=== PATIENT | male | born 1970 | race Caucasian/White ===

== ENCOUNTER 2023-04-20 17:41 | Emergency (ER) | payer OTHER | END 2023-04-20 18:28 | disposition home or self-care (01) | LOC: ERS 17:41 | DX: L76.32 Postprocedural hematoma of skin and subcutaneous tissue following other procedure (principal); L03.116 Cellulitis of left lower limb; I50.9 Heart failure, unspecified; E11.9 Type 2 diabetes mellitus without complications | CPT/HCPCS: 99283 ==

== ENCOUNTER 2023-05-12 16:20 | Emergency (ER) | payer OTHER ==
[2023-05-12 17:29] LABS: #Eosinphils 0.2 thou/uL (0.0-0.7); #Monocytes 0.7 thou/uL (0.11-0.59); %Basophils 0.6 % (0.0-1.0); %Eosinophils 2.9 % (0.0-10.0); %Lymphocytes 25.4 % (21.0-51.0); %Monocytes 13.3 % (0.0-10.0); %Neutrophils 57.6 % (42.0-75.0); Hematocrit 36.3 % (42.0-52.0); Hemoglobin 12.4 g/dL (14.0-18.0); Mean Corpuscular HGB CONC 34.2 g/dL (32.0-36.0); Mean Corpuscular Hemoglobin 33.9 pg (27.0-31.0); Mean Corpuscular Volume 99.2 fl (78.0-98.0); Platelet Count 109 10x3/uL (130-400); RBC Distribution Width 12.7 % (11.5-14.5); Red Blood Cell (RBC) Count 3.66 mill/uL (4.70-6.10); White Blood Cell (WBC) Count 5.2 10x3/uL (4.8-10.8)
[2023-05-12 17:55] LABS: ALT (SGPT) 33 U/L (8-55); AST (SGOT) 37 U/L (5-34); Albumin 3.5 g/dL (3.5-5.0); Alkaline Phosphatase 135 U/L (40-110); Anion Gap 15 mmol/L (10-20); BUN (Urea Nitrogen) 36 mg/dL (8.4-25.7); Bilirubin, Total 0.8 mg/dL (0.2-1.2); Calc. Creatinine Clearance 0 mL/min (70-130); Calcium 8.8 mg/dL (7.8-10.44); Carbon Dioxide 28 mmol/L (22-29); Chloride 98 mmol/L (98-107); Estimated GFR 11; Globulin 3.9 g/dL (2.4-3.5); Glucose 182 mg/dL (70-105); Protein, Total 7.4 g/dL (6.0-8.3); Sodium 137 mmol/L (136-145)
== END 2023-05-12 21:10 | disposition home or self-care (01) ==
LOC: ERS 16:20
DX: S81.802D Unspecified open wound, left lower leg, subsequent encounter (principal); I13.2 Hypertensive heart and chronic kidney disease with heart failure and with stage 5 chronic kidney disease, or end stage renal disease; I50.9 Heart failure, unspecified; N18.6 End stage renal disease; E11.22 Type 2 diabetes mellitus with diabetic chronic kidney disease; F17.210 Nicotine dependence, cigarettes, uncomplicated; W18.30XD Fall on same level, unspecified, subsequent encounter
CPT/HCPCS: 36415; 80053; 83605; 85025

== ENCOUNTER 2023-05-20 15:59 | Inpatient (IN) | payer OTHER, MEDICAID ==
[2023-05-20 18:21] LABS: #Eosinphils 0.1 thou/uL (0.0-0.7); #Monocytes 0.8 thou/uL (0.11-0.59); #Neutrophils 3.2 thou/uL (1.40-6.50); %Basophils 0.4 % (0.0-1.0); %Eosinophils 2.2 % (0.0-10.0); %Lymphocytes 23.9 % (21.0-51.0); %Monocytes 14.1 % (0.0-10.0); %Neutrophils 59.2 % (42.0-75.0); Hematocrit 36.3 % (42.0-52.0); Hemoglobin 12.7 g/dL (14.0-18.0); Mean Corpuscular Hemoglobin 33.7 pg (27.0-31.0); Mean Corpuscular Volume 96.3 fl (78.0-98.0); Mean Platelet Volume 11.8 fL (7.4-10.4); RBC Distribution Width 12.5 % (11.5-14.5); Red Blood Cell (RBC) Count 3.77 mill/uL (4.70-6.10); White Blood Cell (WBC) Count 5.4 10x3/uL (4.8-10.8)
[2023-05-20 18:26] LABS: Platelet Count 127 10x3/uL (130-400)
[2023-05-20 18:54] LABS: ALT (SGPT) 35 U/L (8-55); AST (SGOT) 39 U/L (5-34); Albumin 3.7 g/dL (3.5-5.0); Alkaline Phosphatase 165 U/L (40-110); Anion Gap 12 mmol/L (10-20); BUN (Urea Nitrogen) 26 mg/dL (8.4-25.7); Calc. Creatinine Clearance 0 mL/min (70-130); Calcium 9.1 mg/dL (7.8-10.44); Carbon Dioxide 32 mmol/L (22-29); Chloride 95 mmol/L (98-107); Estimated GFR 15; Globulin 4.2 g/dL (2.4-3.5); Glucose 178 mg/dL (70-105); Potassium 3.5 mmol/L (3.5-5.1); Protein, Total 7.9 g/dL (6.0-8.3); Sodium 135 mmol/L (136-145)
[2023-05-20] MEDS ORDERED: hydrALAZINE 20 MG/ML VIAL ONE (19:21)
[2023-05-20] MEDS ORDERED: Acetaminophen 325 MG TAB PO PRN (20:15)
[2023-05-20] MEDS ORDERED: Ondansetron PF 4 MG/2 ML Vial IVP PRN (20:15)
[2023-05-20] MEDS ORDERED: Ondansetron ODT 4 MG TAB SL PRN (20:15)
[2023-05-20] MEDS ORDERED: HYDROcodone/Acetaminophen 5/325 mg Tablet PO PRN (20:49)
[2023-05-20] MEDS ORDERED: Senokot S 8.6-50 MG TAB PO PRN (20:49)
[2023-05-20] MEDS ORDERED: Calcium Carbonate 500 MG ChewTAB PO PRN (20:49)
[2023-05-20] MEDS ORDERED: Glucagon 1 MG/ML KIT IM PRN (20:52)
[2023-05-20] MEDS ORDERED: Dextrose 50% Abboject 50 ML SYRINGE SLOW IVP PRN (20:52)
[2023-05-20] MEDS ORDERED: HumaLOG 300 UNITS/3 ML VIAL SC PRN ×2 (20:52)
[2023-05-20] MEDS ORDERED: Dextrose 5% in Water 1,000 ML IV PRN (20:52)
[2023-05-20] MEDS ORDERED: niCARdipine 25 MG in Sodium Chloride 0.9% 250 ML 250 ML IVPB SCH (21:00)
[2023-05-20] MEDS ORDERED: niCARdipine 25 MG/10 ML SDV ONE (21:02)
[2023-05-20] MEDS ORDERED: Morphine 4 MG/ML VIAL ONE (21:03)
[2023-05-20] MEDS ORDERED: Ondansetron PF 4 MG/2 ML Vial ONE (21:04)
[2023-05-20] MEDS ORDERED: Vancomycin 1 GM/200 ML (FROZEN) BAG ONE (21:04)
[2023-05-20] MEDS ORDERED: Vancomycin (BATCH) 2 GM in Premix 1 BAG IVPB SCH (21:15)
[2023-05-20 21:43] LABS: Glucose 99 mg/dL (70-105); Hemoglobin A1c 6.6 % (4.0-6.0)
[2023-05-20 23:39] VITALS: BMI 12.6
[2023-05-21] MEDS ORDERED: Labetalol HCl 100 MG/20 ML VIAL SLOW IVP PRN (02:13)
[2023-05-21 06:44] LABS: #Eosinphils 0.2 thou/uL (0.0-0.7); #Neutrophils 3.3 thou/uL (1.40-6.50); %Basophils 0.5 % (0.0-1.0); %Eosinophils 2.9 % (0.0-10.0); %Lymphocytes 25.8 % (21.0-51.0); %Monocytes 16.7 % (0.0-10.0); %Neutrophils 53.6 % (42.0-75.0); Hematocrit 33.8 % (42.0-52.0); Hemoglobin 11.6 g/dL (14.0-18.0); Mean Corpuscular HGB CONC 34.3 g/dL (32.0-36.0); Mean Corpuscular Hemoglobin 33.9 pg (27.0-31.0); Mean Corpuscular Volume 98.8 fl (78.0-98.0); Mean Platelet Volume 11.6 fL (7.4-10.4); Platelet Count 118 10x3/uL (130-400); RBC Distribution Width 12.7 % (11.5-14.5); Red Blood Cell (RBC) Count 3.42 mill/uL (4.70-6.10); White Blood Cell (WBC) Count 6.1 10x3/uL (4.8-10.8)
[2023-05-21 07:07] LABS: Anion Gap 12 mmol/L (10-20); BUN (Urea Nitrogen) 34 mg/dL (8.4-25.7); Calc. Creatinine Clearance 10 mL/min (70-130); Calcium 8.4 mg/dL (7.8-10.44); Carbon Dioxide 31 mmol/L (22-29); Chloride 97 mmol/L (98-107); Estimated GFR 13; Glucose 103 mg/dL (70-105); Potassium 3.8 mmol/L (3.5-5.1); Sodium 136 mmol/L (136-145)
[2023-05-21] MEDS: NIFEdipine XL 30 MG ER.TAB PO SCH (08:30)
[2023-05-21] MEDS: Heparin 5,000 UNITS/ML VIAL SC SCH ×3 (08:30→20:50)
[2023-05-21] MEDS: Morphine 2 MG/ML VIAL SLOW IVP PRN ×3 (09:27→20:56)
[2023-05-21] MEDS: Famotidine 20 MG TAB PO SCH (10:51)
[2023-05-22] MEDS: Morphine 2 MG/ML VIAL SLOW IVP PRN (08:21)
[2023-05-22] MEDS ORDERED: Non-Formulary Item 1 EACH (Buprenorphine Hcl [Belbuca] 300 MCG Film) BC PRN (08:39)
[2023-05-22] MEDS ORDERED: HYDROmorphone 2 MG TAB PO PRN (08:39)
[2023-05-22] MEDS ORDERED: NATEGLINIDE 60 MG PO SCH (09:00)
[2023-05-22] MEDS ORDERED: Non-Formulary Item 1 EACH (Linagliptin [Tradjenta] 5 MG Tablet) PO SCH (09:00)
[2023-05-22] MEDS: Heparin 5,000 UNITS/ML VIAL SC SCH ×2 (09:00→15:15)
[2023-05-22] MEDS ORDERED: Clopidogrel Bisulfate 75 MG TAB PO SCH (09:00)
[2023-05-22] MEDS ORDERED: Alogliptin 25 MG TAB PO SCH (09:00)
[2023-05-22] MEDS ORDERED: Buprenorphine Hcl [Belbuca] 300 MCG Film SL PRN (09:05)
[2023-05-22 09:12] LABS: HBSAB Concentration Less than 8.00 mIU/mL; HBSAg Index 0.16 S/CO (0-0.99); Hep B Core Total Ab Non-Reactive (NonReactive); Hep B Core Total Index 0.28 S/CO (0-0.79); Hep B Surf AB Non-Reactive (NonReactive); Hep B Surf Ag Non-Reactive S/CO (NonReactive); Hep C IgG Ab Non-Reactive S/CO (NonReactive); Hep C Index 0.16 S/CO (0-0.79)
[2023-05-22] MEDS: Famotidine 20 MG TAB PO SCH (15:14)
[2023-05-22 15:28] VITALS: BP 155/66; TEMP 98.2
[2023-05-23] MEDS ORDERED: Nateglinide 120 MG TAB PO SCH (09:00)
== END 2023-05-22 15:31 | disposition home or self-care (01) | DRG 304 ==
LOC: ERS 15:59 → CCU 20:05 → T4-A 05-21 12:34
PROVIDERS: ADMIT Student in an Organized Health Care Education/Training Program; ATTEND Internal Medicine
DX: I16.0 Hypertensive urgency (principal); N18.6 End stage renal disease; L97.929 Non-pressure chronic ulcer of unspecified part of left lower leg with unspecified severity; I13.0 Hypertensive heart and chronic kidney disease with heart failure and stage 1 through stage 4 chronic kidney disease, or unspecified chronic kidney disease; E11.22 Type 2 diabetes mellitus with diabetic chronic kidney disease; Z99.2 Dependence on renal dialysis; I73.9 Peripheral vascular disease, unspecified; I50.9 Heart failure, unspecified; I25.10 Atherosclerotic heart disease of native coronary artery without angina pectoris; E11.51 Type 2 diabetes mellitus with diabetic peripheral angiopathy without gangrene; F17.210 Nicotine dependence, cigarettes, uncomplicated; F41.9 Anxiety disorder, unspecified; F32.A Depression, unspecified; D63.1 Anemia in chronic kidney disease; Z79.01 Long term (current) use of anticoagulants; Z79.899 Other long term (current) drug therapy
CPT/HCPCS: 36415; 36416; 80053; 83036; 83605; 85025; 86140; 86704; 93005; 96365; 96366; 96375; 97139; J0360; J1644; J2270; J2272; J2405; J3370; J3370-JW

== ENCOUNTER 2023-08-14 07:20 | Inpatient (IN) | payer OTHER, MEDICAID ==
[2023-08-14 08:13] LABS: #Eosinphils 0.1 thou/uL (0.0-0.7); #Monocytes 0.8 thou/uL (0.11-0.59); #Neutrophils 2.7 thou/uL (1.40-6.50); %Basophils 0.5 % (0.0-1.0); %Eosinophils 2.5 % (0.0-10.0); %Lymphocytes 18.6 % (21.0-51.0); %Monocytes 17.2 % (0.0-10.0); Hematocrit 33.9 % (42.0-52.0); Hemoglobin 11.8 g/dL (14.0-18.0); Mean Corpuscular HGB CONC 34.8 g/dL (32.0-36.0); Mean Corpuscular Hemoglobin 34.3 pg (27.0-31.0); Mean Corpuscular Volume 98.5 fl (78.0-98.0); Mean Platelet Volume 11.9 fL (7.4-10.4); Platelet Count 94 10x3/uL (130-400); RBC Distribution Width 14.5 % (11.5-14.5); Red Blood Cell (RBC) Count 3.44 mill/uL (4.70-6.10); White Blood Cell (WBC) Count 4.4 10x3/uL (4.8-10.8)
[2023-08-14 08:37] LABS: ALT (SGPT) 38 U/L (8-55); AST (SGOT) 37 U/L (5-34); Albumin 3.4 g/dL (3.5-5.0); Alkaline Phosphatase 136 U/L (40-110); Anion Gap 13 mmol/L (10-20); BUN (Urea Nitrogen) 40 mg/dL (8.4-25.7); Calc. Creatinine Clearance 0 mL/min (70-130); Calcium 8.5 mg/dL (7.8-10.44); Carbon Dioxide 31 mmol/L (22-29); Chloride 94 mmol/L (98-107); Estimated GFR 11; Globulin 4.2 g/dL (2.4-3.5); Glucose 222 mg/dL (70-105); Potassium 3.6 mmol/L (3.5-5.1); Protein, Total 7.6 g/dL (6.0-8.3); Sodium 134 mmol/L (136-145)
[2023-08-14 08:46] LABS: CellaVision Operator ID LAB.KW3; Platelet Adequacy Comment Platelets Decreased; Polychromasia SLIGHT = 2-3 cells HPF (0-2)
[2023-08-14] MEDS ORDERED: Acetaminophen 650 MG Suppository PR PRN (10:27)
[2023-08-14] MEDS ORDERED: Acetaminophen 325 MG TAB PO PRN (10:27)
[2023-08-14] MEDS ORDERED: Non-Formulary Item 1 EACH (Buprenorphine Hcl [Belbuca] 300 MCG Film) BC PRN (10:38)
[2023-08-14] MEDS ORDERED: Buprenorphine Hcl [Belbuca] 300 MCG Film SL PRN (10:49)
[2023-08-14 13:51] LABS: Troponin I 0.031 ng/mL (< 0.028)
[2023-08-14] MEDS ORDERED: Heparin 5,000 UNITS/ML VIAL ONE (15:16)
[2023-08-14] MEDS: Heparin 5,000 UNITS/ML VIAL SC SCH (15:19)
[2023-08-14] MEDS: HYDROmorphone 2 MG TAB PO PRN (17:45)
[2023-08-14] MEDS: cloNIDine 0.1 MG TAB PO PRN (20:41)
[2023-08-14 21:08] LABS: Troponin I 0.022 ng/mL (< 0.028)
[2023-08-14 22:43] VITALS: BMI 29.0
[2023-08-14] MEDS ORDERED: cloNIDine 0.1 MG TAB PO PRN (23:42)
[2023-08-15] MEDS: cloNIDine 0.1 MG TAB PO SCH (00:15)
[2023-08-15] MEDS: Morphine 2 MG/ML VIAL SLOW IVP PRN (01:25)
[2023-08-15 04:33] LABS: #Eosinphils 0.3 thou/uL (0.0-0.7); #Neutrophils 2.9 thou/uL (1.40-6.50); %Basophils 0.5 % (0.0-1.0); %Eosinophils 4.5 % (0.0-10.0); %Lymphocytes 25.1 % (21.0-51.0); %Monocytes 18.2 % (0.0-10.0); %Neutrophils 51.5 % (42.0-75.0); Hematocrit 32.6 % (42.0-52.0); Hemoglobin 11.1 g/dL (14.0-18.0); Mean Corpuscular Hemoglobin 33.1 pg (27.0-31.0); Mean Corpuscular Volume 97.3 fl (78.0-98.0); Mean Platelet Volume 12.5 fL (7.4-10.4); RBC Distribution Width 14.4 % (11.5-14.5); Red Blood Cell (RBC) Count 3.35 mill/uL (4.70-6.10); White Blood Cell (WBC) Count 5.5 10x3/uL (4.8-10.8)
[2023-08-15 04:41] LABS: Platelet Count 86 10x3/uL (130-400)
[2023-08-15 04:54] LABS: Anion Gap 12 mmol/L (10-20); BUN (Urea Nitrogen) 49 mg/dL (8.4-25.7); Calc. Creatinine Clearance 16 mL/min (70-130); Calcium 8.3 mg/dL (7.8-10.44); Carbon Dioxide 31 mmol/L (22-29); Chloride 94 mmol/L (98-107); Estimated GFR 9; Glucose 221 mg/dL (70-105); Potassium 3.9 mmol/L (3.5-5.1); Sodium 133 mmol/L (136-145)
[2023-08-15] MEDS: Alogliptin 25 MG TAB PO SCH (08:42)
[2023-08-15] MEDS: Nateglinide 120 MG TAB PO SCH (08:42)
[2023-08-15] MEDS ORDERED: NATEGLINIDE 60 MG PO SCH (09:00)
[2023-08-15] MEDS ORDERED: Non-Formulary Item 1 EACH (Linagliptin [Tradjenta] 5 MG Tablet) PO SCH (09:00)
[2023-08-15] MEDS: NIFEdipine XL 30 MG ER.TAB PO SCH (11:04)
[2023-08-15] MEDS: Clopidogrel Bisulfate 75 MG TAB PO SCH (11:04)
[2023-08-15] MEDS ORDERED: Nitroglycerin 2% Ointment 1 INCH/1 GM Packet TOP PRN (16:41)
[2023-08-15] MEDS: Minoxidil 10 MG TAB PO SCH (17:34)
[2023-08-16 07:56] LABS: HBSAg Index 0.18 S/CO (0-0.99); Hep B Core Total Ab Non-Reactive (NonReactive); Hep B Core Total Index 0.18 S/CO (0-0.79); Hep B Surf Ag Non-Reactive S/CO (NonReactive); Hep C IgG Ab Non-Reactive S/CO (NonReactive); Hep C Index 0.18 S/CO (0-0.79)
[2023-08-16 08:09] LABS: HBSAB Concentration 493.39 mIU/mL; Hep B Surf AB Reactive (NonReactive)
[2023-08-16] MEDS: Alogliptin 6.25 MG TAB PO SCH (13:27)
[2023-08-16] MEDS: Ezetimibe 10 MG TAB PO SCH (13:27)
[2023-08-16] MEDS: Fish Oil 1,000 MG CAP PO SCH (13:27)
[2023-08-16] MEDS: Minoxidil 10 MG TAB PO SCH (13:28)
[2023-08-16 13:48] VITALS: BP 163/69; TEMP 98.1
== END 2023-08-16 14:55 | disposition home or self-care (01) | DRG 314 ==
LOC: ERS 07:20 → SUATTDRO 07:20 → ERHOLD 10:29 → 2NO 19:53
PROVIDERS: ADMIT Family Medicine; ATTEND Internal Medicine
PROC: 5A1D70Z Performance of Urinary Filtration, Intermittent, Less than 6 Hours Per Day (ICD-10-PCS; principal; 2023-08-16)
DX: T82.868A Thrombosis due to vascular prosthetic devices, implants and grafts, initial encounter (principal); N18.6 End stage renal disease; I13.2 Hypertensive heart and chronic kidney disease with heart failure and with stage 5 chronic kidney disease, or end stage renal disease; E87.79 Other fluid overload; E11.40 Type 2 diabetes mellitus with diabetic neuropathy, unspecified; E11.22 Type 2 diabetes mellitus with diabetic chronic kidney disease; F41.9 Anxiety disorder, unspecified; F17.210 Nicotine dependence, cigarettes, uncomplicated; G89.29 Other chronic pain; D64.9 Anemia, unspecified; E11.51 Type 2 diabetes mellitus with diabetic peripheral angiopathy without gangrene; Z88.8 Allergy status to other drugs, medicaments and biological substances; Z88.0 Allergy status to penicillin; Y83.8 Other surgical procedures as the cause of abnormal reaction of the patient, or of later complication, without mention of misadventure at the time of the procedure
CPT/HCPCS: 36415; 36416; 71045; 80048; 80053; 83880; 84484; 85025; 86704; 93005; J1644; J2272

== ENCOUNTER 2024-05-28 12:56 | Day surgery (SDC) | payer OTHER, MEDICAID ==
[2024-05-27 10:29] VITALS: BMI 27.8
[2024-05-28 14:54] LABS: #Basophils 0.03 10x3/uL (0.0-0.2); %Basophils 0.6 % (0.0-1.0); %Eosinophils 1.8 % (0.0-10.0); %Lymphocytes 25.7 % (21.0-51.0); %Monocytes 12.5 % (0.0-10.0); %Neutrophils 59.2 % (42.0-75.0); Hematocrit 36.2 % (42.0-52.0); Hemoglobin 12.7 g/dL (14.0-18.0); Mean Corpuscular HGB CONC 35.1 g/dL (32.0-36.0); Mean Corpuscular Hemoglobin 33.6 pg (27.0-31.0); Mean Corpuscular Volume 95.8 fL (78.0-98.0); Mean Platelet Volume 12.4 fL (7.4-10.4); Platelet Count 90 10x3/uL (130-400); RBC Distribution Width 13.1 % (11.5-14.5); Red Blood Cell (RBC) Count 3.78 mill/uL (4.70-6.10)
[2024-05-28] MEDS ORDERED: Lidocaine 1% (PF) 30 ML VIAL ONE (15:15)
[2024-05-28] MEDS ORDERED: Lidocaine 1% PF 5 ML VIAL ONE (15:22)
[2024-05-28] MEDS ORDERED: Ketamine In 0.9 % NaCl 50 MG/5 ML SYRINGE ONE (15:22)
[2024-05-28] MEDS ORDERED: PROPOFOL 20 ML ONE (15:22)
[2024-05-28] MEDS ORDERED: fentaNYL PF 100 MCG/2 ML SYRINGE ONE ×2 (15:22→17:47)
[2024-05-28] MEDS ORDERED: Clindamycin/D5W 900 mg/50 ml Premix Bag ONE (15:32)
[2024-05-28 15:39] LABS: Platelet Adequacy Comment Platelets Decreased; Polychromasia SLIGHT = 2-3 cells HPF (0-2); Target Cells SLIGHT = 2-5 cells HPF (0-1)
[2024-05-28 16:04] LABS: Anion Gap 18 mmol/L (10-20); BUN (Urea Nitrogen) 54 mg/dL (8.4-25.7); Calc. Creatinine Clearance 17 mL/min (70-130); Calcium 8.6 mg/dL (7.8-10.44); Carbon Dioxide 23 mmol/L (22-29); Chloride 100 mmol/L (98-107); Estimated GFR 10; Glucose 136 mg/dL (70-105); Potassium 3.7 mmol/L (3.5-5.1); Sodium 137 mmol/L (136-145)
[2024-05-28] MEDS ORDERED: Midazolam HCl 2 mg/2 ml Vial ONE (16:06)
[2024-05-28] MEDS ORDERED: Ondansetron PF 4 MG/2 ML Vial ONE (16:39)
[2024-05-28] MEDS ORDERED: Dexamethasone 4 mg/ml Vial ONE (16:39)
== END 2024-05-28 18:31 | disposition home or self-care (01) ==
LOC: SDC 12:56
PROVIDERS: ATTEND Orthopaedic Surgery
PROC: 2W5MXYZ Removal of Other Device on Left Lower Extremity (ICD-10-PCS; principal; 2024-05-28)
DX: T85.848A Pain due to other internal prosthetic devices, implants and grafts, initial encounter (principal); I13.2 Hypertensive heart and chronic kidney disease with heart failure and with stage 5 chronic kidney disease, or end stage renal disease; N18.6 End stage renal disease; I50.9 Heart failure, unspecified; I25.10 Atherosclerotic heart disease of native coronary artery without angina pectoris; E11.22 Type 2 diabetes mellitus with diabetic chronic kidney disease; S72.402A Unspecified fracture of lower end of left femur, initial encounter for closed fracture; E11.42 Type 2 diabetes mellitus with diabetic polyneuropathy; Z98.49 Cataract extraction status, unspecified eye; Z99.2 Dependence on renal dialysis; Z88.0 Allergy status to penicillin; Z79.899 Other long term (current) drug therapy; Z98.890 Other specified postprocedural states; Y83.1 Surgical operation with implant of artificial internal device as the cause of abnormal reaction of the patient, or of later complication, without mention of misadventure at the time of the procedure; X58.XXXA Exposure to other specified factors, initial encounter
CPT/HCPCS: 20680; 73552; 80048; 82962; 85025; 86141; J1100; J2250; J2405; J2704; J3490 ×2; 36416

== ENCOUNTER 2024-06-12 11:58 | Outpatient (CLI) | payer OTHER, MEDICAID | END 2024-06-12 11:59 | disposition home or self-care (01) | LOC: ULT 11:58 | PROVIDERS: ATTEND Family Medicine | DX: M25.562 Pain in left knee (principal); R31.9 Hematuria, unspecified; S72.351B Displaced comminuted fracture of shaft of right femur, initial encounter for open fracture type I or II | CPT/HCPCS: 76770 ==

== ENCOUNTER 2025-05-22 17:07 | Emergency (ER) | payer OTHER, MEDICAID ==
[2025-05-22 19:09] LABS: Hematocrit 26.8 % (42.0-52.0); Hemoglobin 8.5 g/dL (14.0-18.0); Mean Corpuscular Hemoglobin 32.2 pg (27.0-31.0); Mean Corpuscular Volume 101.5 fL (78.0-98.0); Platelet Count 92 10x3/uL (130-400); Red Blood Cell (RBC) Count 2.64 mill/uL (4.70-6.10); White Blood Cell (WBC) Count 4.51 10x3/uL (4.8-10.8)
[2025-05-22 19:24] LABS: ALT (SGPT) 11 U/L (Less than 45); AST (SGOT) 35 U/L (11-34); Albumin 2.6 g/dL (3.1-4.5); Alkaline Phosphatase 123 U/L (40-110); Anion Gap 17 mmol/L (10-20); BUN (Urea Nitrogen) 36 mg/dL (8.4-25.7); Bilirubin, Total 0.7 mg/dL (0.3-1.2); Calc. Creatinine Clearance 0 mL/min (70-130); Calcium 9.0 mg/dL (7.8-10.44); Carbon Dioxide 30 mmol/L (22-29); Chloride 94 mmol/L (98-107); Globulin 5.4 g/dL (2.4-3.5); Glucose 116 mg/dL (70-105); Potassium 4.1 mmol/L (3.5-5.1); Sodium 137 mmol/L (136-145)
[2025-05-22 19:48] LABS: Anisocytosis SLIGHT = 6-15 cells HPF (0-5); Macrocytosis SLIGHT = 6-15 cells HPF (0-5); Microcytosis SLIGHT = 6-15 cells HPF (0-5); Ovalocytes SLIGHT = 2-5 cells HPF (0-1); Platelet Adequacy Comment Platelets Decreased; Stomatocytes SLIGHT = 2-5 cells HPF (0-1)
[2025-05-22] MEDS ORDERED: HYDROcodone/Acetaminophen 5/325 mg Tablet ONE (20:07)
== END 2025-05-22 20:24 | disposition home or self-care (01) ==
LOC: ERS 17:07
DX: I13.2 Hypertensive heart and chronic kidney disease with heart failure and with stage 5 chronic kidney disease, or end stage renal disease (principal); I50.9 Heart failure, unspecified; N18.6 End stage renal disease; E11.22 Type 2 diabetes mellitus with diabetic chronic kidney disease; D63.1 Anemia in chronic kidney disease; Z99.2 Dependence on renal dialysis; R29.700 NIHSS score 0; E11.40 Type 2 diabetes mellitus with diabetic neuropathy, unspecified; F17.210 Nicotine dependence, cigarettes, uncomplicated
CPT/HCPCS: 36415; 70450; 80053; 85025